=== PATIENT | female | born 1965 | race Caucasian/White ===

== ENCOUNTER 2020-11-12 06:23 | Emergency (ER) | payer BC, SELFPAY ==
[2020-11-12 06:42] VITALS: BP 134/64; PULSE 88; RESP 18; TEMP 36.3; O2SAT 96; BMI 26.2
[2020-11-12 06:59] LABS: Add Manual Diff / Slide Review NO; Basophils Absolute Auto 100 /uL (0-100); Basophils Percent Auto 0.6 % (0-2); Eosinophils Absolute Auto 100 /uL (0-450); Eosinophils Percent Auto 0.9 % (2-4); Hematocrit 42.4 % (36-46); Hemoglobin 14.4 g/dL (12.0-16.0); Lymphocytes Absolute Auto 1300 /uL (1100-4500); Mean Corpuscular Hemoglobin 32.8 PG (26-34); Mean Corpuscular Volume 96.6 fL (80-100); Monocytes Absolute Auto 400 /uL (0-900); Monocytes Percent Auto 3.7 % (3-14); Neutrophils Absolute Auto 9600 /uL (1500-7000); Neutrophils Percent Auto 83.8 % (50-75); Platelet Count 248 X10^3/uL (150-400); Red Blood Cell Count 4.39 X10^6/uL (4.0-5.2); Red Cell Distribution Width 13.2 % (11.6-14.8); White Blood Cell Count 11.4 X10^3/uL (4.5-11.0)
[2020-11-12 07:05] LABS: Alanine Aminotransferase 33 IU/L (<35); Albumin 4.5 g/dL (3.5-5.0); Albumin Globulin Ratio 1.8 (1.0-2.8); Alkaline Phosphatase 62 U/L (38-126); Aspartate Aminotransferase 29 IU/L (14-36); BUN Creatinine Ratio 23.9 (6-22); Bilirubin Total 0.9 mg/dL (0.2-1.3); Blood Urea Nitrogen 17 mg/dL (7-17); Calcium 9.3 mg/dL (8.4-10.2); Carbon Dioxide 24 mmol/L (22-32); Chloride 109 mmol/L (98-107); Estimated Glomerular Filt Rate > 60.0 mL/min (>60); Globulin 2.5 g/dL (1.7-4.1); Glucose 137 mg/dL (70-100); HEMOLYSIS < 15 (0-50); Lipase 105 U/L (23-300); Sodium 140 mmol/L (137-145)
--- NOTE | 2020-11-12 07:25 | ED_ITS ---
HPI - General Adult General Chief complaint: Abdominal Pain Stated complaint: has parkinsons/pain in shldrs tremors Time Seen by Provider: 11/12/20 07:07 Source: patient Mode of arrival: Ambulatory Limitations: no limitations History of Present Illness HPI narrative: 55-year-old female. Has a history of Parkinson's disease. States that last evening she took her last dose of carbidopa/levodopa at approximately 1000 hours in the evening. She felt like the pill got stuck in her esophagus. Since that time she has had increasing discomfort in her epigastric region. She is also having upper back discomfort. She states that she has had this in the past and is related to the spasticity related to a Parkinson's disease. She has sought treatment for this in the past. Does not have muscle relaxers at home. Is not having any urinary symptoms. Has her unchanged loose stools. Has had her appendix out but no other abdominal surgeries. Abdominal discomfort not worse with bowel movements. Some nausea but no vomiting. Overall feels very poorly. Related Data Previous Rx's Medication Instructions Recorded cyclobenzaprine 10 mg tablet 10 mg PO TID PRN #20 tab 11/12/20 Allergies Allergy/AdvReac Type Severity Reaction Status Date / Time amoxicillin Allergy Verified 11/12/20 06:41 Review of Systems Constitutional Constitutional: Denies fever(s) and Denies headache(s) Eyes Eyes: Reports system reviewed and no additional complaints, except as documented ENT Ears, Nose, Mouth, and Throat: Denies headache(s) Cardiovascular Cardiovascular: Reports system reviewed and no additional complaints, except as documented Respiratory Respiratory: Reports system reviewed and no additional complaints, except as documented Gastrointestinal Gastrointestinal: Reports system reviewed and no additional complaints, except as documented Genitourinary Genitourinary: Reports system reviewed and no additional complaints, except as documented Musculoskeletal Musculoskeletal: Reports system reviewed and no additional complaints, except as documented and Reports as per HPI Integumentary/Breasts Skin/Breast: Reports system reviewed and no additional complaints, except as documented Neurologic Neurologic: Denies headache(s) Hematologic/Lymphatic On Anticoagulants: No Allergic/Immunologic Allergic/Immunologic: Reports system reviewed and no additional complaints, except as documented Patient History Medical History Parkinsons disease Surgical History Hx of appendectomy Social History Smoking Status: Never smoker Smoking Status: Never smoker alcohol intake frequency: holidays/special occasions only Substance Use Type: marijuana Exam Initial Vital Signs Initial Vital Signs: Vital Signs Temperature 97.4 F L 11/12/20 06:42 Pulse Rate 88 11/12/20 06:42 Respiratory Rate 18 11/12/20 06:42 Blood Pressure 134/64 11/12/20 06:42 Pulse Oximetry 96 11/12/20 06:42 Const General: cooperative, healthy appearing and comfortable HENMT Head: normal to inspection and normocephalic Chest Chest: normal inspection of the chest Resp Effort & Inspection: normal respiratory effort Auscultation: clear to auscultation bilaterally Cardio Rate: regular rate Rhythm: regular rhythm GI Inspection: normal to inspection Palpation: soft and tender (Epigastric region) Back/Spine/Pelvis Other: Patient does have increased muscle tension in her upper back specifically over the rhomboids and trapezius muscles. Skin General: no rashes or lesions noted Neuro General: patient alert, patient awake and moves all extremities Cognition: normal cognition Speech: speech normal Extrem General: normal to inspection and capillary refill normal Psych Appearance: grossly normal Mood: congruent mood Affect: normal affect Course Orders Ordered: ED Orders 11/12/20 06:44 EKG-12 Lead Stat 11/12/20 06:50 Complete Blood Count AUTO DIFF Stat Comprehensive Metabolic Panel Stat Lipase Stat Discontinued Medications Al Hydrox/Mg Hydrox/Simethicone 20 ml/ Lidocaine HCl 15 ml 0 ml PO NOW ONE Stop: 11/12/20 07:26 Last Admin: 11/12/20 07:39 Dose: 35 ml Documented by: MARY Cyclobenzaprine HCl (Cyclobenzaprine 10 Mg Tablet) 10 mg PO NOW ONE Stop: 11/12/20 07:26 Last Admin: 11/12/20 07:38 Dose: 10 mg Documented by: MARY Pantoprazole Sodium (Pantoprazole 40 Mg Vial) 40 mg IV NOW ONE Stop: 11/12/20 07:26 Last Admin: 11/12/20 07:39 Dose: 40 mg Documented by: MARY Vital Signs Vital signs: Vital Signs - 8 hr 11/12/20 06:42 Temperature 97.4 F L Pulse Rate 88 Respiratory Rate 18 Blood Pressure 134/64 Pulse Oximetry 96 Medical Decision Making Lab Data Lab results reviewed: Yes I reviewed the patient's lab results. Result diagrams: 11/12/20 06:50 11/12/20 06:50 Labs: Lab Results 11/12/20 11/12/20 Range/Units 06:50 06:50 WBC 11.4 H (4.5-11.0) X10^3/uL RBC 4.39 (4.0-5.2) X10^6/uL Hgb 14.4 (12.0-16.0) g/dL Hct 42.4 (36-46) % MCV 96.6 (80-100) fL MCH 32.8 (26-34) PG MCHC 34.0 (30-36) % RDW 13.2 (11.6-14.8) % Plt Count 248 (150-400) X10^3/uL Neut % (Auto) 83.8 H (50-75) % Lymph % (Auto) 11.0 L (25-40) % [place] % (Auto) 3.7 (3-14) % Eos % (Auto) 0.9 L (2-4) % Baso % (Auto) 0.6 (0-2) % Neut # (Auto) 9600 H (1972-1232) /uL Lymph # (Auto) 1300 (9106-0976) /uL [place] # (Auto) 400 (0-900) /uL Eos # (Auto) 100 (0-450) /uL Baso # (Auto) 100 (0-100) /uL Sodium 140 (137-145) mmol/L Potassium 4.0 (3.4-5.1) mmol/L Chloride 109 H (98-107) mmol/L Carbon Dioxide 24 (22-32) mmol/L BUN 17 (7-17) mg/dL Creatinine 0.71 (0.52-1.04) mg/dL Estimated GFR > 60.0 (>60) mL/min BUN/Creatinine Ratio 23.9 H (6-22) Glucose 137 H (70-100) mg/dL Calcium 9.3 (8.4-10.2) mg/dL Total Bilirubin 0.9 (0.2-1.3) mg/dL AST 29 (14-36) IU/L ALT 33 (<35) IU/L Alkaline Phosphatase 62 (38-126) U/L Total Protein 7.0 (6.3-8.2) g/dL Albumin 4.5 (3.5-5.0) g/dL Globulin 2.5 (1.7-4.1) g/dL Albumin/Globulin Ratio 1.8 (1.0-2.8) Lipase 105 (23-300) U/L ECG Data Attestation: I personally reviewed and interpreted this ECG as follows: Interpretation: Sinus rhythm Ventricular rate is 79 Normal axis Normal QRS Normal QTC No ST T wave changes MDM Narrative Medical decision making narrative: Patient reports some improvement of both her upper back pain and her abdominal pain with medications given here in the emergency department. The very high suspicion that her upper back pain is musculoskeletal in origin. Most likely related or Parkinson's disease. Plan will be is to send her home with a prescription for Flexeril. Also have a very high suspicion that her abdominal pain is GI related. I have low suspicion for gallbladder pathology given her labs and her presentation today. Low suspicion for bowel obstruction. She is already on a PPI. Will have her start taking t his on a daily basis is right now she is taking it every other day. She will follow-up with her primary doctor when she returns back home to [place]. She is given return precautions and follow-up instructions. She expressed understanding and agreement. Discharge Plan Departure Patient Disposition: Home Clinical Impression: Abdominal pain, Upper back pain Instructions: DI for Abdominal Pain-Adult, Thoracic Back Pain Activity Restrictions/Additional Instructions: I suspect that your upper back pain is muscular in origin most likely related to your Parkinson's disease. Continue all of your medications as directed use the muscle relaxers as needed. I suspect that your abdominal discomfort is related to irritation of your stomach. Potentially from the medication she took last evening. Recommend that you take your pantoprazole on a daily basis like we discussed. Eat a bland diet and advanced it as tolerated. Return to the emergency department for any new or worsening symptoms Prescriptions: New cyclobenzaprine 10 mg tablet 10 mg PO TID PRN (Reason: muscle spasm) Qty: 20 RF: 0
[2020-11-12] MEDS: CYCLOBENZAPRINE 10 MG TABLET PO (07:38)
[2020-11-12] MEDS: MAG HYDROX/ALUMINUM/SIMETH SUS 20 ML, LIDOCAINE VISCOUS 2% 15 ML PO (07:39)
[2020-11-12] MEDS: PANTOPRAZOLE 40 MG VIAL IV (07:39)
[2020-11-12 08:33] VITALS: BP 101/57; PULSE 84; RESP 18; O2SAT 95
== END 2020-11-12 08:34 | disposition home or self-care (01) ==
PROVIDERS: Emergency Medicine; Emergency Provider Emergency Medicine
DX: R10.13 Epigastric pain (principal); M54.6 Pain in thoracic spine
CPT/HCPCS: 36415; 80053; 83690; 85025; 93005; 96374; 99284; C9113